=== PATIENT | male | born 1995 | race American Indian/Alaskan Native ===

== ENCOUNTER 2019-03-10 20:19 | Emergency (ER) | payer SELFPAY ==
[2019-03-10 20:26] VITALS: BP 172/99
--- NOTE | 2019-03-10 20:30 | Emergency Department Report ---
Blank Doc - Documentation Documentation: 23 y/o male comes for a boil on buttock times 2 days. Pain 04/09. . PMH none.
[2019-03-11] MEDS ORDERED: CLEOCIN PO ONE (00:56)
[2019-03-11] MEDS ORDERED: NORCO 5/325 PO ONE (00:56)
--- NOTE | 2019-03-11 00:56 | Emergency Department Report ---
Abscess Boil HPI - HPI Chief Complaint: Skin/Abscess/Foreign Body Stated Complaint: CYST ON BUTTOCKS/PAINFUL Time Seen by Provider: 03/11/19 00:55 Duration: 2 Days Location: Sacral/Pilonidal Severity: Severe History: Yes Pain (10/10), No Fever, No Purulent Drainage, No Numbness, No Foreign Body, No Previous History, No Insect Bite HPI: This is a 23-year-old male here report that he has a cyst on his buttocks 2 days that is painful and getting worse. Pain is 10/10. Denies any previous history. Location: Buttocks. Duration: 2 days. Quality: Throbbing. Severity: Severe. Modifying factors: [see above]. Context: Cyst on buttocks. Mode of transportation: Family member Home Medications: Previous Rx's Medication Instructions Recorded Last Taken Type Ibuprofen [Motrin] 800 mg PO Q8HR PRN 10 Days #12 03/11/19 Unknown Rx tablet Sulfamethoxazole/Trimethoprim 1 each PO BID 10 Days #20 tablet 03/11/19 Unknown Rx [Bactrim DS TAB] Allergies/Adverse Reactions: Allergies Allergy/AdvReac Type Severity Reaction Status Date / Time No Known Allergies Allergy Verified 03/11/19 01:02 ED Review of Systems ROS: Stated complaint: CYST ON BUTTOCKS/PAINFUL Other details as noted in HPI Constitutional: denies: chills, fever ENT: denies: throat pain, congestion Respiratory: denies: cough, shortness of breath, wheezing Cardiovascular: denies: chest pain, palpitations, edema, syncope Genitourinary: denies: dysuria, frequency, testicular pain Skin: other Neurological: denies: headache, numbness, paresthesias, abnormal gait, vertigo Psychiatric: denies: suicidal thoughts (cyst on buttocks area) ED Past Medical Hx - Past Medical History Previous Medical History?: No - Surgical History Past Surgical History?: No - Family History Family history: hypertension - Social History Smoking Status: Never Smoker Substance Use Type: Marijuana - Medications Home Medications: Home Medications Medication Instructions Recorded Confirmed Last Taken Type Ibuprofen [Motrin] 800 mg PO Q8HR PRN 10 Days #12 03/11/19 Unknown Rx tablet Sulfamethoxazole/Trimethoprim 1 each PO BID 10 Days #20 tablet 03/11/19 Unknown Rx [Bactrim DS TAB] ED Abscess Boil Physical Exam - Exam General: Vital signs noted. No distress. Alert and acting appropriately. 23-year-old male well-nourished well-developed in no acute distress Front/Back of Body, Lg (Color): 1 - Patient with 2 cm pilonidal cysts to sacral area. Tender to palpate with mild surrounding erythema and induration. Minimal fluctuants. Size: 2 cm Exam: Yes Tenderness, Yes Fluctuance (minimal), Yes Surrounding Cellulites/Erythema (minimal), Yes Normal Neurologic Exam (normal exam), Yes Normal Circulation (normal exam), No Lymphangitis, No Crepitation, No Heart Murmur I & D Note - I & D Note I & D Note: Incision and drainage procedure. 2 cm pilonidal cyst with minimal fluctuance and mostly indurated to the pilonidal area. Area cleansed with iodine followed by normal saline. 5 mL of 0.25% Marcaine injected at the site. #11 blade scalpel used to make 1 cm incision and forceps used to activate area. Large amount of malodorous pus expressed from site. Area cleansed with normal saline and iodoform packing placed to site. Dry gauze dressing placed. Patient tolerated procedure well and to return in 4 days for removal of packing. ED Course Vital Signs 03/10/19 20:25 Temperature 98.4 F Pulse Rate 117 H Respiratory 18 Rate Blood Pressure 172/99 O2 Sat by Pulse 98 Oximetry Vital Signs 03/10/19 03/11/19 03/11/19 20:25 03:25 03:32 Temperature 98.4 F Pulse Rate 117 H 61 68 Respiratory 18 98 H Rate Blood Pressure 172/99 O2 Sat by Pulse 98 98 Oximetry Respiratory rate 98 bpm entered in error - Reevaluation(s) Reevaluation #1: 03/11/19 03:06 Please see procedure note for incision and drainage procedure. Patient is premedicated with Jo[place] 5/325 2 tablets by mouth prior to procedure due to pain and he said a lot better status post incision and drainage. Critical care attestation.: If time is entered above; I have spent that time in minutes in the direct care of this critically ill patient, excluding procedure time. ED Medical Decision Making - Radiology Data Radiology results: report reviewed - Medical Decision Making This is a 23-year-old male here for abscess to buttocks. Patient found to have pilonidal cyst and incision and drainage procedure done to area. Patient tolerated procedure well. Please see procedure note for detail. Patient instructed to place warm compresses to affected area 3-4 times a day to facilitate further softening and drainage of remainder of pus from abscess and he voiced understanding. I discussed with him that he needs to return in 4 days to have packing removed. Patient was also given clindamycin 600 mg by mouth and emergency room. Assessment/plan Pilonoidal abscess-incision and drainage procedure done. Pain is controlled. Vital signs the patient given prescription for Bactrim DS and Motrin and to return to the emergency room in 4 days for packing and he voiced understanding. Discharged home in family in stable condition. Vital signs stable and his pain is better. ED Disposition Clinical Impression: Pilonidal abscess, Encounter for drainage of abscess Disposition: DC-01 TO HOME OR SELFCARE Is pt being admited?: No Does the pt Need Aspirin: No Condition: Stable Instructions: Abscess Incision and Drainage (ED) Additional Instructions: Please return to the emergency room in 4 days for removal of packing. Please do not remove packing from affected area. Take medication as prescribed. Please ensure that he take all antibiotics as prescribed Take Motrin as prescribed and take this medication with food to prevent irritation to your stomach lining If he condition worsens, increase in temperature, nausea and vomiting and feeling of weakness and lightheadedness with increase in pain to buttocks after following instructions, please return to emergency room [id number] Prescriptions: Sulfamethoxazole/Trimethoprim [Bactrim DS TAB] 1 each PO BID 10 Days #20 tablet Ibuprofen [Motrin] 800 mg PO Q8HR PRN 10 Days #12 tablet PRN Reason: Pain Referrals: ADRIANNA WYLIE MD [Primary Care Provider] - 2-3 Days Forms: Work/School Release Form(ED)
[2019-03-11] MEDS ORDERED: MARCAINE 0.25% INFILTRATI ONE (00:57)
== END 2019-03-11 03:31 | disposition home or self-care (01) ==
LOC: ED 20:19
DX: L05.01 Pilonidal cyst with abscess (principal); F12.10 Cannabis abuse, uncomplicated